=== PATIENT | male | born 1945 | race Caucasian/White ===

== ENCOUNTER 2020-10-27 10:19 | Emergency (ER) | payer OTHER, BC ==
[~2020-10-27] VITALS: Ht 170.2 cm; Wt 75.3 kg
[2020-10-27] MEDS ORDERED: TOPROL XL50 MG PO (10:55)
[2020-10-27] MEDS ORDERED: NORVASC5 MG PO (10:55)
[2020-10-27] MEDS ORDERED: MIRALAX17 GM PO (10:55)
[2020-10-27] MEDS ORDERED: LIPITOR40 MG PO (10:55)
[2020-10-27] MEDS ORDERED: OMEPRAZOLE20 M3 PO (10:56)
[2020-10-27] MEDS ORDERED: SYNTHROID175 MCG PO (10:56)
[2020-10-27] MEDS ORDERED: IMDUR 30 MG TAB30 M1 PO (10:56)
[2020-10-27] MEDS ORDERED: FLOMAX0.4 MG PO (10:56)
[2020-10-27] MEDS ORDERED: DAPSONE100 MG PO (10:57)
[2020-10-27] MEDS ORDERED: ASA81BEC PO (10:57)
[2020-10-27] MEDS ORDERED: COZAAR100 MG PO (10:57)
[2020-10-27 11:00] VITALS: BP 144/74
[2020-10-27 11:13] LABS: BASOPHILS 0.6 % (0.0-2.0); EOSINOPHILS 0.7 % (0.0-3.0); HEMATOCRIT 42.3 % (42.0-52.0); HEMOGLOBIN 14.2 gm/dL (14.0-18.0); LYMPHOCYTES 21.3 % (24.0-44.0); MCH 33.5 pg (26.0-34.0); MCHC 33.6 g/dL (28.0-37.0); MCV 99.6 fL (80.0-100.0); MONOCYTES 6.1 % (1.0-8.0); POLYS 71.3 % (36.0-66.0); RBC 4.24 mil/uL (4.50-6.00); RDW 14.2 % (10.5-14.5); WBC 5.7 thou/uL (4.0-11.0)
[2020-10-27 11:30] LABS: ANION GAP 8 mmol/L (7-16); BUN 12 mg/dL (7-18); CALCIUM 8.7 mg/dL (8.5-10.1); CHLORIDE 106 mmol/L (98-107); CO2 28 mmol/L (21-32); CREATININE 0.8 mg/dL (0.7-1.3); GLUCOSE 96 mg/dL (74-106); POTASSIUM 3.9 mmol/L (3.5-5.1); SODIUM 142 mmol/L (136-145)
--- NOTE | 2020-10-27 11:37 | EKG ---
[address] [employer] [place] [address] ELECTROCARDIOGRAM REPORT Name: KATE METZ Room #: [facility] [id number] Admission: 10/27/20 Attend Phys: Discharge: Date of : 49 Report #: [id number] [facility] ED Test Date: 2020-10-27 Test Time: 10:26:11 Pat Name: KATE METZ Department: Room: Gender: M [employer]: ABBY : 1945 Requested By: Tripp Anderson Order Number: [id number] MD: Parker Almazan Measurements Intervals [place] Rate: 58 P: 64 [place]: 173 QRS: 41 QRSD: 96 T: 90 QT: 419 QTc: 412 Interpretive Statements Sinus rhythm Probable left atrial enlargement Nonspecific T abnormalities, lateral leads No previous ECG available for comparison Electronically Signed On 10-27-2020 11:37:21 CDT by Parker Almazan [email or web address] <ELECTRONICALLY SIGNED> By: Parker Almazan MD, [facility] 10/27/20 1137 1026 1026 Parker Almazan MD, FACC /EPI
[2020-10-27 11:39] LABS: TROPONIN-I <0.06 ng/mL (<0.06)
[2020-10-27 13:56] LABS: PLATELET COUNT 183 thou/uL (150-400)
== END 2020-10-27 14:20 | disposition home or self-care (01) ==
LOC: ER 10:19
PROVIDERS: Nurse Practitioner
DX: I10 Essential (primary) hypertension (principal); E03.9 Hypothyroidism, unspecified; E78.5 Hyperlipidemia, unspecified; K21.9 Gastro-esophageal reflux disease without esophagitis; Z98.890 Other specified postprocedural states